=== PATIENT | female | born 1960 | race Caucasian/White ===

== ENCOUNTER 2017-09-12 20:52 | Emergency (ER) | payer OTHER ==
[~2017-09-12] VITALS: Ht 162.6 cm; Wt 67.9 kg
[2017-09-12 20:57] VITALS: BP 135/79; PULSE 102; RESP 20; TEMP 98.7; O2SAT 99
[2017-09-12] MEDS ORDERED: PROPOFOL 200 MG/20 ML AMP IV ONE ×2 (21:15→22:30)
[2017-09-12] MEDS ORDERED: ONDANSETRON HCL 4 MG/2 ML VIAL IV PUSH ONE (21:15)
[2017-09-12] MEDS ORDERED: MORPHINE SULFATE 4 MG/ML INJ IV ONE (21:15)
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
[2017-09-12] MEDS ORDERED: NORC5TAB PO (21:45)
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
[2017-09-12 22:06] VITALS: O2SAT 99
[2017-09-12] MEDS ORDERED: oxyCODONE/ACETAMINOPHEN 10 MG/325 MG TAB PO ONE (22:30)
--- NOTE | 2017-09-12 22:49 | PD ---
Physical Exam Date Seen by Provider: Sep 12, 2017 Time Seen by Provider: 22:00 Narrative Patient was seen and evaluated by Dr. Foy, and she has several fractures in her right hand, I was asked to step in to help with conscious sedation. Patient is fairly healthy, intubation score is 2. Vital signs are stable. Appropriate conscious sedation paperwork has been obtained and consent obtained. Propofol was used for conscious sedation. A total of 200 MCG's of propofol was given. Patient tolerated procedure well. She was monitored and did not have any significant apneic episodes. She was observed until completely awake and was released. Data Data Last Documented VS Vital Signs Date Time Temp Pulse Resp B/P (MAP) Pulse Ox O2 Delivery O2 Flow Rate FiO2 09/12/17 22:06 99 09/12/17 22:06 2.00 09/12/17 21:00 Room Air 09/12/17 20:57 98.7 102 20 135/79 (97) Orders Orders Consent (09/12/17 21:05) Hand, Complete ([id number]) (09/12/17 21:05) Ondansetron Inj (Zofran Inj) (09/12/17 21:15) Morphine Inj (Morphine Inj) (09/12/17 21:15) Propofol 200 Mg/20 Ml Inj (Diprivan 200 (09/12/17 21:15) ^ Saline Lock (09/12/17 21:05) Oxycodone-Acetamin 10-325 Mg (Percocet 1 (09/12/17 22:30) Ed Discharge Order (09/12/17 22:19) Propofol 200 Mg/20 Ml Inj (Diprivan 200 (09/12/17 22:30) MDM Medical Record Reviewed: Yes Supervised Visit with ANGELIQUE: No Procedures Procedure Narrative After the risks and benefits were discussed the following procedure was performed: MODERATE SEDATION: The patient was placed on a bus driver/monitor and pulse oximetry. An ambu bag and suction was immediately available at bedside. The patient was monitored by the nurse. Oxygen saturation, heart rate and blood pressure were monitored. Procedural sedation was acheived using 200 MCG of propofol. The patient was observed until awake and alert. Procedural Sedation time in attendance was 15 minutes. Diagnosis Primary Impression: Finger fracture, right Qualified Codes: S62.610A - Displaced fracture of proximal phalanx of right index finger, initial encounter for closed fracture Additional Impressions: Fracture of phalanx of right middle finger Qualified Codes: S62.612A - Displaced fracture of proximal phalanx of right middle finger, initial encounter for closed fracture Fracture of phalanx of right ring finger Qualified Codes: S62.644A - Nondisplaced fracture of proximal phalanx of right ring finger, initial encounter for closed fracture Referrals: Jose Turner MD 1 day Patient Instructions: General Instructions, Narcotic given in the ED, Finger Fracture (ED), Moderate Sedation (ED), Splint Care (ED) Departure Forms: Tests/Procedures Scripts Hydrocodone-Acetaminophen ([place]) 5 Mg-325 Mg Tab 1 TAB PO Q4H Y for PAIN, #12 TAB 0 Refills Prov: Yolis Foy MD 09/12/17 Disposition: 01 DISCHARGE HOME Condition: Stable SoontharoBrian garcia MD Sep 12, 2017 22:49
[2017-09-12 22:55] VITALS: BP 125/67; TEMP 98.2
== END 2017-09-12 23:06 | disposition home or self-care (01) ==
LOC: PHED 20:52
DX: S62.610A Displaced fracture of proximal phalanx of right index finger, initial encounter for closed fracture (principal); S62.612A Displaced fracture of proximal phalanx of right middle finger, initial encounter for closed fracture; S62.614A Displaced fracture of proximal phalanx of right ring finger, initial encounter for closed fracture; I10 Essential (primary) hypertension; W19.XXXA Unspecified fall, initial encounter; Y92.814 Boat as the place of occurrence of the external cause; Z88.0 Allergy status to penicillin
CPT/HCPCS: 26725; 73130; 96374; 96375; 99285; J2270; J2405; 29125; 99156